=== PATIENT | male | born 1970 ===

== ENCOUNTER 2016-05-20 09:08 | Emergency (ER) | payer SELFPAY ==
--- NOTE | 2016-05-28 08:10 | ER ---
ADMIT: 05/20/2016 RM/LOC: ER [facility] MR#: [id number] [address] [id number] KALLIE ARANDA [address] [facility] [place] [address] Emergency Room Report SEX: M AGE: 45 : 1970 DATE: 05/20/2016 ADDENDUM: CHIEF COMPLAINT: Nausea, vomiting, and diarrhea. HISTORY OF PRESENT ILLNESS: This is a 45-year-old, who developed these symptoms just this last Monday or Monday after eating three pork chops. He was the only one who ate them. He does not know if he had food poisoning at that time. He said, at this time, he is just having bowel movements of water, anything that he eats he is vomiting. COURSE IN EMERGENCY ROOM: He received a total of 2 L of normal saline. He was given Zofran. Urine showed 1+ protein, 30 glucose, 18 white blood cells, 61 hyaline casts, 46 white blood cells casts. Sodium was 134, potassium is 3.0, chloride 104, bicarb 19, BUN 27, creatinine 1.8, glucose 231. WBC is 14.5, hemoglobin 18.4. He said he still aches a little bit in his stomach, but feels a little bit better. IMPRESSION: 1. Vomiting and diarrhea. 2. Urinary tract infection. 3. Diabetes. 4. Renal insufficiency secondary to dehydration. DISPOSITION: Told him to try the BRAT diet this week and push fluids. Follow up Dr. Zazueta on Monday to recheck labs and to discuss getting back on his diabetes medications. YONAS Bustos / Jefferson Cole MD / modl JOB #: [id number] CC: Jefferson Cole MD, Attending Physician
== END 2016-05-20 12:05 | disposition home or self-care (01) ==
LOC: ER 09:08
DX: N39.0 Urinary tract infection, site not specified (principal); E86.0 Dehydration; E11.9 Type 2 diabetes mellitus without complications; F32.9 Major depressive disorder, single episode, unspecified